=== PATIENT | female | born 2005 | race African-American/Black ===

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

== ENCOUNTER 2024-05-31 22:05 | Emergency (ER) | payer MEDICAID ==
[~2024-05-31] VITALS: Ht 152.4 cm; Wt 45.0 kg
[~2024-05-31 22:05] MED LIST: AMOX-424 MT
[2024-05-31 22:55] VITALS: TEMP 98.1; O2SAT 100
[2024-06-01] MEDS: IBUPROFEN 600MG TABLET PO ONE (00:04)
[2024-06-01] MEDS: TETANUS, DIPHTHERIA, PERTUSSIS VAC/PF 0.5ML (>10YR OLD) IM ONE (00:05)
[2024-06-01 00:56] VITALS: BP 117/84; PULSE 65; RESP 18
== END 2024-06-01 00:45 | disposition home or self-care (01) ==
LOC: ER 22:05
DX: S09.90XA Unspecified injury of head, initial encounter (principal); X58.XXXA Exposure to other specified factors, initial encounter; Y93.89 Activity, other specified; Y92.89 Other specified places as the place of occurrence of the external cause; Y99.8 Other external cause status
CPT/HCPCS: 12001; 90471; 90715; 99283